=== PATIENT | male | born 1955 | race Caucasian/White ===

== ENCOUNTER → 2017-02-26 | Day surgery (SDC) | payer OTHER ==
[~2017-02-26] VITALS: Ht 182.9 cm; Wt 145.2 kg
[~2017-02-26] MED LIST: ATOR20TA PO; INSU100I13 SUBQ; INSU100V27 SQ; LISI40TA PO; METF1000 PO; METH500T PO; Propofol 10,000 mCg/mL 20 mL Inj ONE; TRAM50TA2 PO; VENL150T3 PO
--- NOTE | 2017-02-26 12:36 | PCM.HPANE ---
Patient Data Surgeon Admitting Provider: Attending Provider:Abhijit Myles MD Primary Care Physician:Other,Physician Other Provider:Edwar Blandon Anesthesia Reason for Visit Adenomatous Polyp Of Colon Ht/WT & BMI Body Mass Index Allergies Coded Allergies: No Known Drug Allergies (Verified Allergy, Unknown, 02/22/17) Past Anesthesia History Anesthesia History: Denies:: Abnormal Airway, Anesthesia Reactions, Difficult Intubation, Fam Anesthesia Reaction, Fam Malignant Hypertherm, Malignant Hyperthermia Diabetes History Hx Diabetes?: Yes MRSA MRSA: No Medications Hypertension Medication: Yes Reported Medications Venlafaxine ER 150 Mg Tab.[id number].07973 Mg PO DAILY Ref 0 02/22/17 Tramadol 50 Mg Eryrlb44 Mg PO HS PRN For Pain Ref 0 02/22/17 Insulin Regular, Human (Novolin-R U100 Insulin Vial)100 Unit/1 Ml Vial33 Units SQ TIDWM #1 VIAL Ref 0 02/22/17 Metformin (Glucophage)1,000 Mg Tablet2,000 Mg PO DAILY Ref 0 02/22/17 Lisinopril 40 Mg Aourfh09 Mg PO DAILY 30 Days Ref 0 02/22/17 Insulin Glargine (Lantus U100 Solostar Insulin Pen)100 Unit/1 Ml Insuln.pen50 Unit SUBQ DIRECTED #1 PENINJ Ref 0 02/22/17 Atorvastatin (Lipitor)20 Mg Vixvdy69 Mg PO DAILY Ref 0 02/22/17 History History of ENT Problems?: No HEENT History: Denies:: Abnormal Airway Cataracts Difficult Intubation Dysphagia Glaucoma Hearing Problem Sinus Problem TMJ Denture Type: None Teeth Condition: Within Normal Limits Hx of Heart Problems?: Yes Cardiovascular History: Positive for:: Hypertension Other History/Comments Well controlled with medications, Cardiac ROS negative Hx of Respiratory Problem?: No Respiratory History: Denies:: Asthma COPD Chest Surgery Cough Dyspnea Emphysema Hemoptysis Oxygen Administration Pneumonia Pulmonary Embolism Tuberculosis Use of C-PAP Machine Use of Inhalers / NEBS Other History/Comment ROS negative Hx Neurologic Problems?: No Hx of GI Problems?: Yes Other History/Comment history of colon polyp Hx of Problems?: No HX of Peritoneal Dialysis: No Male Hx: Denies:: Prostate Problems Scrotal Mass Testicular Surgery Skin History: Denies:: History Skin Disorders? Pressure Ulcers Hx Musculoskeletal Problems?: Yes Other History/Comment Chronic pain Hx of Psycho/Social Problems?: No Hx Surgeries?: Yes Hx Diabetes: Yes Other History/Comment metformin and insulin Hx Alcohol Use: NoHx Substance Use: No Stop/Bang Treated for Sleep Apnea?: No Do You Have a CPAP Machine?: No Risk Assessment Category Category 1A: Patient has history of documented sleep apnea, and HAS NOT received any narcotic, sedative or anesthesia administration during this stay. Category 1B: Patient has history of documented sleep apnea, and HAS received any narcotic , sedative or anesthesia administration during this stay Category 2: Patient has SUSPECTED Obstructive Sleep Apnea, and HAS received any narcotic , sedative or anesthesia administration during this stay. Category 3: Patient has SUSPECTED Obstructive Sleep Apnea and HAS NOT received narcotic, sedative or anesthesia administration during this stay. Category 4: Outpatient in Procedural Areas with known sleep apnea or who screen positive for High Risk via the STOP/BANG questionnaire. Exam Exam General Appearance: Alert, Oriented X3, Cooperative, No Acute Distress HEENT/AIRWAY: MP 2 Lungs: Clear to Auscultation, Normal Air Movement Heart: Exam Unremarkable, Regular Rate/Rhythm, No Murmurs/Rubs/Gallops Plan Impression Patient chart reviewed, patient interviewed and anesthestic plan with risks, benefits, and alternatives discussed, and informed consent obtained. ASA Physical Status: ASA2 Mod Systemic Disease Anesthetic Plan: GA Bene/Risks/Altern/Consents: Yes HP Complete Prior to Induction: Yes Abhijit Hickey MD Feb 26, 2017 12:36
[2017-02-26 12:38] VITALS: BP 121/76; PULSE 82; RESP 16; O2SAT 100
[2017-02-26] MEDS: Lactated Ringer's 1,000 ML IV ONE ×3 (12:50→13:02)
[2017-02-26 13:03] VITALS: BP 105/62; PULSE 77; RESP 16; O2SAT 98
[2017-02-26 13:13] VITALS: BP 116/69; PULSE 62; RESP 16; O2SAT 98
[2017-02-26 13:23] VITALS: BP 118/68; PULSE 63; RESP 16; O2SAT 98
--- NOTE | 2017-02-26 13:31 | ENDO ---
[address] [address] ENDOSCOPY PROCEDURE PATIENT: TREMAYNE MCADAMS : 1955 MR#: [id number] ADMIT: 02/26/2017 JOB ID: [id number] DATE: 02/26/2017 TYPE OF OPERATION: Colonoscopy with biopsy. PREOPERATIVE DIAGNOSIS(ES): History of tubular adenoma polyps. POSTOPERATIVE DIAGNOSIS(ES): 1. A 2 mm sigmoid polyp, removed by cold biopsy forceps. 2. Small internal hemorrhoids. ANESTHESIA: Monitored anesthesia care. COMPLICATIONS: None. ESTIMATED BLOOD LOSS: Minimal. DESCRIPTION OF PROCEDURE: After risks and benefits were explained to the patient, informed consent was obtained. After anesthesia administered, colonoscope was then inserted per rectum to cecum. Mucosa carefully examined. Prep of the patient was excellent. After procedure was done, the scope withdrawn and procedure terminated. FINDINGS: Upon inspection of the anus, no masses, hemorrhoids, ulcers, or fissures are seen. Throughout the entire examination, there was a 2 mm sigmoid polyp removed by cold biopsy forceps. No other polyps or masses were seen. Retroflexion showed small internal hemorrhoids. IMPRESSION: 1. Small internal hemorrhoids. 2. A 2 mm sigmoid polyp removed by cold biopsy forceps. RECOMMENDATIONS: 1. Await pathology results. 2. Stool softeners as needed. 3. Repeat colonoscopy five years given history of tubular adenoma polyps.
--- NOTE | 2017-02-26 14:00 | PCM.ANEP1 ---
Post Anesthesia PACU Phase 1 Assessment Vital Signs Vital Signs Date Time Temp Pulse Resp B/P Pulse Ox O2 Delivery O2 Flow Rate FiO2 02/26/17 13:23 63 16 118/68 98 Room Air 02/26/17 13:13 62 16 116/69 98 Room Air 02/26/17 13:03 77 16 105/62 98 Room Air 02/26/17 12:38 36.5 82 16 121/76 100 Room Air Anesthetic Administered: GA Level of Alertness: Awake, talking YARBROUGH's with Equal Strength: Yes Pain: No Nausea or Vomiting: No CV Function & Hydration Stable: Yes Airway Device: Oxygen Delivery: Room Air Lungs: Clear to Auscultation, Normal Air Movement Dermatome Level: Full Sensation PACU Phase 2 Assessment Complications: No Follow up Care: No Patient Instructions Provided: N/A Abhijit Hickey MD Feb 26, 2017 14:00
--- NOTE | 2017-02-28 18:39 | PATH ---
SURGICAL PATHOLOGY Attending Physician:Abhijit Myles MD CASE STATUS: Signed Out PATIENT NAME: TREMAYNE MCADAMS PID: [id number] : 1955 DATE COLLECTED:02/26/2017 19:13 SPECIMEN: Colon, Polyp CLINICAL HISTORY: 1). SIGMOID POLYP FINAL DIAGNOSIS: 1.SIGMOID COLON POLYP, BIOPSY: TUBULAR ADENOMA. ICD10 D12.5 GROSS DESCRIPTION: The specimen is received in one formalin filled container labeled with the patient's name, sublabeled "sigmoid polyp" and consists of a 0.2 x 0.2 x 0.2 CM portion of tissue which is entirely submitted in one cassette. 02/26/2017DC MICRO DESCRIPTION: See diagnosis. ICD-9 CODES: CPT CODES: 1: 91829 Electronically Signed Out Russell Orosco MD, Ph.D. [facility] Pathology [facility] [address], [place] [address] Technical component performed at [facility], [address] [place] [address] Ave[address], [place], [address]
== END | disposition home or self-care (01) ==
LOC: END 02:24
PROVIDERS: ATTEND Internal Medicine Gastroenterology
DX: Z12.11 Encounter for screening for malignant neoplasm of colon (principal); Z86.010 Personal history of colon polyps; D12.5 Benign neoplasm of sigmoid colon; K64.8 Other hemorrhoids; E11.9 Type 2 diabetes mellitus without complications; Z79.4 Long term (current) use of insulin; I10 Essential (primary) hypertension
CPT/HCPCS: 45380; J2704; J7120